=== PATIENT | female | born 1995 | race Two or more races ===

== ENCOUNTER 2018-07-23 01:11 | Emergency (ER) | payer OTHER ==
[~2018-07-23] VITALS: Ht 167.6 cm; Wt 58.5 kg
--- NOTE | 2018-07-23 01:21 | NUR ---
PT REPORTS LOW BACK PAIN AND HAVING A SYNCOPAL EPISODE THIS MORNING. PER TRIAGE NOTE
[2018-07-23] MEDS ORDERED: ESCI10TA10 PO (01:28)
--- NOTE | 2018-07-23 01:34 | NUR ---
AFTER ERP EVAL DONE PT AMBULATED TO BATHROOM GIVEN URINE CUP
[2018-07-23 01:51] LABS: BASOPHILS # (AUTO) 0.05 x10^3/uL (0-0.1); BASOPHILS % (AUTO) 1 % (0-1); EOSINOPHILS # (AUTO) 0.21 x10^3/uL (0-0.4); EOSINOPHILS % (AUTO) 2 % (1-7); LYMPHOCYTES # (AUTO) 1.38 x10^3/uL (1-3.4); LYMPHOCYTES % (AUTO) 14 % (22-44); MD NO; MEAN CORPUSCULAR HEMOGLOBIN 27.5 pg (27.0-34.8); MEAN CORPUSCULAR HGB CONC 33.8 g/dL (32.4-35.8); MEAN CORPUSCULAR VOLUME 81.4 fL (80-100); MEAN PLATELET VOLUME 8.1 fL (7.4-10.4); MONOCYTES # (AUTO) 0.69 x10^3/uL (0.2-0.8); MONOCYTES % (AUTO) 7 % (2-9); NEUTROPHILS # (AUTO) 7.72 x10^3/uL (1.8-6.8); NEUTROPHILS % (AUTO) 77 % (42-75); PLATELET COUNT 219 x10^3/uL (130-400); RED CELL DISTRIBUTION WIDTH 13.2 % (9.6-15.2)
[2018-07-23] MEDS ORDERED: MORPHINE SULFATE 4 MG/ML, 1ML ONE (01:56)
[2018-07-23] MEDS ORDERED: METHOCARBAMOL 750 MG TABLET ONE (01:56)
[2018-07-23] MEDS ORDERED: ONDANSETRON 2MG/ML, 2ML ONE (01:56)
[2018-07-23] MEDS ORDERED: MORPHINE SULFATE 4 MG/ML, 1ML IVPush PRN (02:00)
[2018-07-23] MEDS ORDERED: ONDANSETRON 2MG/ML, 2ML IVPush ONE (02:00)
[2018-07-23] MEDS ORDERED: METHOCARBAMOL 750 MG TABLET PO ONE (02:00)
[2018-07-23 02:03] LABS: ALANINE AMINOTRANSFERASE 21 U/L (12-78); ALBUMIN 3.3 g/dL (3.4-5.0); ANION GAP 5 mmol/L (5-15); CALCIUM 8.3 mg/dL (8.5-10.1); CHLORIDE 111 mmol/L (98-107); CREATININE 0.91 mg/dL (0.55-1.02)
[2018-07-23 02:04] LABS: HCG UR SG 1.012 (1.003-1.030)
[2018-07-23 02:06] LABS: ALKALINE PHOSPHATASE 52 U/L (45-117); BILIRUBIN,TOTAL 0.4 mg/dL (0.2-1.0); TOTAL PROTEIN 6.5 g/dL (6.4-8.2)
[2018-07-23 02:07] LABS: MICROSCOPIC INDICATED
[2018-07-23 02:29] LABS: CULTURE INDICATED? YES
--- NOTE | 2018-07-23 02:37 | NUR ---
pt stated still having pain at bilateral lower back pain vss stable
--- NOTE | 2018-07-23 03:26 | NUR ---
given dc instruction pt understood pt stated " i am feeling better now but still uncomfortable " given water and snack juice for comfort measure per pt's request
[2018-07-23 03:27] VITALS: BP 113/68
== END 2018-07-23 03:39 | disposition home or self-care (01) ==
LOC: ED 01:43
DX: S39.012A Strain of muscle, fascia and tendon of lower back, initial encounter (principal); R55 Syncope and collapse; Z87.891 Personal history of nicotine dependence; X58.XXXA Exposure to other specified factors, initial encounter; Y93.89 Activity, other specified; Y92.89 Other specified places as the place of occurrence of the external cause; Y99.8 Other external cause status
CPT/HCPCS: 36415; 80053; 81001; 81025; 83690; 85025; 87086; 93005; 96374; 96375; 99284; J2405